=== PATIENT | female | born 1960 ===

== ENCOUNTER 2018-08-12 11:52 | Inpatient (IN) | payer OTHER ==
[~2018-08-12] VITALS: Ht 170.2 cm; Wt 68.0 kg
--- NOTE | 2018-08-12 12:13 | NUR ---
Dr Temple at the bedside for MSE.
[2018-08-12 12:22] LABS: BASOPHILS % (AUTO) 0.4 % (0.0-2.0); EOSINOPHILS % (AUTO) 0.3 % (0.0-7.0); HEMATOCRIT 37.2 % (31.2-41.9); HEMOGLOBIN 12.8 g/dL (10.9-14.3); LYMPHOCYTES # (AUTO) 0.9 K/uL (20.0-40.0); LYMPHOCYTES % (AUTO) 15.6 % (20.5-51.5); MEAN CORPUSCULAR HEMOGLOBIN 30.6 uug (24.7-32.8); MEAN CORPUSCULAR HGB CONC 35 g/dL (32.3-35.6); MEAN CORPUSCULAR VOLUME 88.8 fL (75.5-95.3); MONOCYTES # (AUTO) 0.4 K/uL (2.0-10.0); MONOCYTES % (AUTO) 5.9 % (0.0-11.0); NEUTROPHILS # (AUTO) 4.6 K/uL (1.8-8.9); NEUTROPHILS % (AUTO) 77.8 % (38.5-71.5); PLATELET COUNT (AUTO) 300 K/uL (179-408); RED BLOOD CELL COUNT(AUTO) 4.19 MIL/uL (3.63-4.92); WHITE BLOOD COUNT (AUTO) 5.9 K/uL (3.8-11.8)
[2018-08-12 12:32] LABS: CREATININE 0.7 mg/dL (0.6-1.3); POTASSIUM 3.6 mmol/L (3.5-5.1)
[2018-08-12 12:48] LABS: BILIRUBIN,DIRECT 0.2 mg/dL (0.0-0.2); BILIRUBIN,TOTAL 1.5 mg/dL (0.2-1.0); TOTAL PROTEIN, SERUM 8.6 g/dL (6.4-8.2)
[2018-08-12] MEDS ORDERED: OCREVUS (13:46)
--- NOTE | 2018-08-12 14:27 | NUR ---
CONRAD speaking with Dr. Mueller ([facility]).
--- NOTE | 2018-08-12 16:20 | NUR ---
SBAR report given to KEENA Landa via telephone.
[2018-08-12] MEDS ORDERED: ASPIRIN 81 MG TAB.CHEW PO ONE (16:30)
--- NOTE | 2018-08-12 17:06 | NUR ---
Pt trans to tele floor, NAD noted.
--- NOTE | 2018-08-12 17:27 | NUR ---
ADMITTED FROM DOCTORS OFFICE VIA ER WITH CC OF SEVERE DUARTE, WEAKNESS AND CHEST PRESSURE. AWAKE ALERT, PLEASANT AND ORIENTED X3. ROUTINE ADMISSION ASSESSMENT INITIATED. NOTIFIED OF ADMISSION
[2018-08-12 17:49] VITALS: BP 144/85
--- NOTE | 2018-08-12 18:07 | NUR ---
ASA DOSE FOR 1630 GIVEN IN ER
[2018-08-12] MEDS: ACETAMINOPHEN 325 MG TABLET PO PRN (19:37)
[2018-08-12 20:12] VITALS: BP 124/80
[2018-08-12] MEDS ORDERED: ACETAMINOPHEN 325 MG TABLET PO PRN (22:30)
[2018-08-12] MEDS ORDERED: MAGNESIUM HYDROXIDE 30 ML LIQUID UDC PO PRN (22:30)
[2018-08-12] MEDS ORDERED: ONDANSETRON 4 MG/2 ML VIAL IV PRN (22:30)
[2018-08-12] MEDS ORDERED: Z GUARD REMEDY PASTE 57 GM TUBE TOP PRN (22:30)
[2018-08-12] MEDS ORDERED: HYDROCODONE/APAP 10-325 MG TABLET PO PRN (22:30)
[2018-08-12] MEDS ORDERED: ZOLPIDEM 5 MG TABLET PO PRN (22:30)
[2018-08-12] MEDS: IV NS 1000 ML 1,000 ML IV PRN (23:15)
[2018-08-12] MEDS ORDERED: ENOXAPARIN SODIUM 40 MG/0.4 ML DISP.SYRIN SQ ONE (23:30)
[2018-08-13] VITALS: BP 106/70
[2018-08-13 04:00] VITALS: BP 121/84
[2018-08-13] MEDS: ACETAMINOPHEN 325 MG TABLET PO PRN (06:05)
[2018-08-13 06:15] LABS: BASOPHILS % (AUTO) 0.3 % (0.0-2.0); EOSINOPHILS % (AUTO) 0.5 % (0.0-7.0); HEMATOCRIT 38.1 % (31.2-41.9); HEMOGLOBIN 13.4 g/dL (10.9-14.3); LYMPHOCYTES # (AUTO) 0.9 K/uL (20.0-40.0); LYMPHOCYTES % (AUTO) 12.1 % (20.5-51.5); MEAN CORPUSCULAR HEMOGLOBIN 31.5 uug (24.7-32.8); MEAN CORPUSCULAR HGB CONC 35 g/dL (32.3-35.6); MEAN CORPUSCULAR VOLUME 89.9 fL (75.5-95.3); MONOCYTES # (AUTO) 0.5 K/uL (2.0-10.0); MONOCYTES % (AUTO) 7.7 % (0.0-11.0); NEUTROPHILS # (AUTO) 5.6 K/uL (1.8-8.9); NEUTROPHILS % (AUTO) 79.4 % (38.5-71.5); PLATELET COUNT (AUTO) 320 K/uL (179-408); RED BLOOD CELL COUNT(AUTO) 4.24 MIL/uL (3.63-4.92)
[2018-08-13 06:34] LABS: CREATININE 0.8 mg/dL (0.6-1.3); MAGNESIUM 1.8 mg/dL (1.8-2.4); PHOSPHOROUS 3.2 mg/dL (2.5-4.9); POTASSIUM 3.7 mmol/L (3.5-5.1); THYROID STIMULATING HORMONE 0.68 mIU/mL (0.358-3.740)
--- NOTE | 2018-08-13 07:15 | NUR ---
NURSING NOTES Patient rested well in between care; at start of shift, pt had fever, referred to Dr Mueller, and made aware; admitting orders done; ivf started; assisted to bathroom ; refused lovenox but she wore the SCDs; no fever overnight but this AM had a temp and tylenol given; endorse to KEENA Landa for continuity of care.
[2018-08-13 07:30] VITALS: BP 110/73
--- NOTE | 2018-08-13 08:00 | NUR ---
AWAKE ALERT AND ORIENTED X3 DENIES CHEST PRESSURE BUT STILL C/O HEADACHE NOT RELIEVED WITH TYLENOL. SR ON MONITOR. OBSERVE
[2018-08-13 11:08] VITALS: BP 103/65
--- NOTE | 2018-08-13 12:29 | NUR ---
SEEN AND EXAMINED BY DR FABIAN SEE NOTES. CONTINUE WITH TELE OBSERVATION
[2018-08-13] MEDS ORDERED: MIRALAX 17 GM POWD.PACK PO SCH (12:30)
[2018-08-13] MEDS: IV NS 1000 ML 1,000 ML IV PRN (15:07)
[2018-08-13 15:24] VITALS: BP 116/73
--- NOTE | 2018-08-13 16:08 | NUR ---
DR FABIAN CALLED WITH ORDER TO DISCHARGE PATIENT WITH SAME HOME MEDS. AND FOLLOW-UP WITH PCP
--- NOTE | 2018-08-13 17:00 | NUR ---
DISCHARGED AND FOLLOW-UP INSTRUCTION WITH PCP GIVEN TO PATIENT
--- NOTE | 2018-08-13 20:35 | NUR ---
PT HAS BEEN DISCHARGED PER MD ORDER, PT WAS GIVEN DISCHARGE INSTRUCTIONS BY DAY SHIFT RN. PT DOES NOT HAVE ANY OTHER QUESTIONS. PT'S IV IS OUT. PT IN COMMUNICATION WITH TRANSPORT, PT STATED [id number] IS WAITING DOWNSTAIRS FOR [employer], AND THAT THEY MARCEL NOT COME UP. PT WHEELED DOWN TO LOBBY. ALL NEEDS MET, PT LEFT FACILITY WITH TRANSPORT.
[2018-08-13] MEDS ORDERED: ENOXAPARIN SODIUM 40 MG/0.4 ML DISP.SYRIN SQ SCH (21:00)
== END 2018-08-13 20:24 | disposition home or self-care (01) | DRG 203 ==
LOC: ER 11:56 → TELE 16:41
PROVIDERS: ADMIT Nurse Practitioner Acute Care; ATTEND Nurse Practitioner Acute Care
DX: M94.0 Chondrocostal junction syndrome [Tietze] (principal); G35 Multiple sclerosis; K21.9 Gastro-esophageal reflux disease without esophagitis; E86.0 Dehydration; Z82.49 Family history of ischemic heart disease and other diseases of the circulatory system; Z83.3 Family history of diabetes mellitus; M81.0 Age-related osteoporosis without current pathological fracture; E80.6 Other disorders of bilirubin metabolism
CPT/HCPCS: 36415; 70030-TC; 71045; 83735; 84100; 84443; 85025; 85730; 93005; 93307; A4663; J7030